=== PATIENT | male | born 1985 | race Caucasian/White ===

== ENCOUNTER 2016-11-30 03:34 | Emergency (ER) | payer MEDICAID ==
[~2016-11-30] VITALS: Ht 154.9 cm; Wt 58.0 kg
[2016-11-30 03:39] VITALS: Ht 154.9 cm; Wt 58.0 kg
[2016-11-30] MEDS ORDERED: SOD CHLORIDE 0.9% 1,000 ML IV STA (04:00)
[2016-11-30] MEDS ORDERED: ONDANSETRON 4 MG INJ IV STA (04:00)
[2016-11-30] MEDS ORDERED: morphine 4 MG/ML VIAL IV STA (04:00)
--- NOTE | 2016-11-30 04:35 | RADRPT ---
PROCEDURE: CHEST - 1 VIEW CLINICAL INDICATION: 31-year-old male with chest pain. TECHNIQUE: A single frontal AP upright portable view of the chest was performed. The images were reviewed on a PACS workstation. COMPARISON: None. FINDINGS: The cardiomediastinal silhouette has a normal appearance. There is no evidence for an infiltrate. T he pulmonary vascularity is within normal limits. There is no evidence for pneumothorax or pneumomed iastinum. The osseous structures are intact. IMPRESSION: No evidence for active cardiopulmonary disease. .Augusto Hui MD, MD Date Time Electronically viewed and signed by .Augusto Hui MD, on 11/30/2016 04:35 .M/
[2016-11-30 04:49] LABS: BASOPHIL # 0.1 10^3/ul (0.0-0.1); BASOPHILS % 0.7 % (0.0-2.0); EOSINOPHILS # 0.5 10^3/ul (0.0-0.5); EOSINOPHILS % 5.4 % (0.0-7.0); HEMATOCRIT 42.3 % (42.0-52.0); HEMOGLOBIN 15.1 g/dl (14.0-18.0); LYMPHOCYTES # 1.5 10^3/ul (0.8-2.9); MEAN CORPUSCULAR HEMOGLOBIN 31.2 pg (29.0-33.0); MEAN CORPUSCULAR HGB CONC 35.7 g/dl (32.0-37.0); MEAN CORPUSCULAR VOLUME 87.4 fl (82.0-101.0); MEAN PLATELET VOLUME 9.8 fl (7.4-10.4); MONOCYTE # 0.9 10^3/ul (0.3-0.9); MONOCYTES % 8.7 % (0.0-11.0); NEUTROPHILS % 69.8 % (39.0-77.0); PLATELET COUNT 302 10^3/UL (140-415); RED BLOOD COUNT 4.84 10^6/ul (4.70-6.10); RED CELL DISTRIBUTION WIDTH 11.7 % (11.5-14.5)
[2016-11-30 05:05] LABS: INR 1.11; PROTIME 14.3 Sec (12.2-14.2); PT RATIO 1.1
[2016-11-30 05:06] LABS: PARTIAL THROMBOPLASTIN TIME 30.7 Sec (25.0-35.0)
[2016-11-30 05:09] LABS: ANION GAP 22 (8-16); BLOOD UREA NITROGEN 9 mg/dl (7-20); CALCIUM 9.8 mg/dl (8.4-10.2); CARBON DIOXIDE 28 mmol/L (21-31); CHLORIDE 97 mmol/L (97-110); CREATININE 0.68 mg/dl (0.61-1.24); GLUCOSE 113 mg/dl (70-220); POTASSIUM 3.8 mmol/L (3.5-5.1); SODIUM 143 mmol/L (135-144)
[2016-11-30 05:21] LABS: TROPONIN-I < 0.012 ng/ml (0.00-0.12)
--- NOTE | 2016-11-30 05:21 | ERD ---
ER Documentation Chief Complaint Date/Time DATE: 11/30/16 TIME: 05:20 Chief Complaint palpitations started @0300,left chest sharp pain,numbness bilat hands HPI This a 31-year-old male who comes with palpitations started at 3 AM. Numbness in bilateral hands as well. No fevers no chills. No nausea no vomiting. Mild chest pain that is reproducible on left side. No trouble. No homicidal or suicidal ideation. No auditory or visual hallucinations ROS All systems reviewed and are negative except as per history of present illness. Allergies Allergies: Coded Allergies: No Known Allergy (Unverified , 11/30/16) PMhx/Soc History of Surgery: No Anesthesia Reaction: No Hx Neurological Disorder: No Hx Respiratory Disorders: No Hx Cardiac Disorders: No Hx Psychiatric Problems: No Hx Miscellaneous Medical Probl: No Hx Alcohol Use: Yes (occasionally) Hx Substance Use: No Hx Tobacco Use: Yes (quit) Smoking Status: Former smoker Physical Exam Vitals Vital Signs Date Time Temp Pulse Resp B/P Pulse Ox O2 Delivery O2 Flow Rate FiO2 11/30/16 04:51 73 20 134/89 100 Room Air 11/30/16 03:51 81 17 136/96 100 Room Air 11/30/16 03:39 99.6 105 18 149/100 100 Physical Exam Const: [] Head: Atraumatic Eyes: Normal Conjunctiva ENT: Normal External Ears, Nose and Mouth. Neck: Full range of motion..~ No meningismus. Resp: Clear to auscultation bilaterally Cardio: Regular rate and rhythm, no murmurs Abd: Soft, non tender, non distended. Normal bowel sounds Skin: No petechiae or rashes Back: No midline or flank tenderness Ext: No cyanosis, or edema Neur: Awake and alert Psych: Normal Mood and Affect Result Diagram: 11/30/16 04211/30/16 0421 Results 24 hrs Laboratory Tests Test 11/30/16 04:21 White Blood Count 10.010^3/ul Red Blood Count 4.8410^6/ul Hemoglobin 15.1g/dl Hematocrit 42.3% Mean Corpuscular Volume 87.4fl Mean Corpuscular Hemoglobin 31.2pg Mean Corpuscular Hemoglobin Concent 35.7g/dl Red Cell Distribution Width 11.7% Platelet Count 72989^3/UL Mean Platelet Volume 9.8fl Neutrophils % 69.8% Lymphocytes % 15.0% Monocytes % 8.7% Eosinophils % 5.4% Basophils % 0.7% Nucleated Red Blood Cells % 0.0/100WBC Neutrophils # 7.010^3/ul Lymphocytes # 1.510^3/ul Monocytes # 0.910^3/ul Eosinophils # 0.510^3/ul Basophils # 0.110^3/ul Nucleated Red Blood Cells # 0.010^3/ul Prothrombin Time 14.3Sec Prothrombin Time Ratio 1.1 INR International Normalized Ratio 1.11 Activated Partial Thromboplast Time 30.7Sec Sodium Level 143mmol/L Potassium Level 3.8mmol/L Chloride Level 97mmol/L Carbon Dioxide Level 28mmol/L Anion Gap 22 Blood Urea Nitrogen 9mg/dl Creatinine 0.68mg/dl Glucose Level 113mg/dl Calcium Level 9.8mg/dl Troponin I Pending Current Medications Medications (Trade) Dose Ordered Sig/August Route PRN Reason Start Time Stop Time Status Last Admin Dose Admin Sodium Chloride (NS) 1,000 ml @ 1,000 mls/hr Q1H STAT IV 11/30/16 04:00 11/30/16 04:59 DC 11/30/16 04:33 Morphine Sulfate (morphine) 4 mg ONCE STAT IV 11/30/16 04:00 11/30/16 04:05 DC Ondansetron HCl (Zofran Inj) 4 mg ONCE STAT IV 11/30/16 04:00 11/30/16 04:05 DC 11/30/16 04:33 Lorazepam (Ativan) 1 mg ONCE ONCE IV 11/30/16 05:30 11/30/16 05:31 Procedures/MDM EKG: Rate/Rhythm: [Normal Sinus Rhythm] QRS, ST, T-waves: [No changes consistent w/ acute ischemia] Impression: [No evidence of ischemia or arrhythmia] Chest X-ray 1V Interpreted by me: Soft Tissue: No acute abnormalities Bones: No acute abnormalities Mediastinum/Cardiac Silhouette/Lungs: [No acute abnormalities] Patient's thoracic symptoms have stabilized while in the department and are stable for outpatient follow up. Exam and work up not consistent w/ ischemia, arrhythmia, PE or dissection. Departure Diagnosis: Primary Impression: Palpitations Condition: Stable ASTON ESPINOZA Nov 30, 2016 05:21
[2016-11-30] MEDS ORDERED: LORA1TAB PO (05:28)
[2016-11-30] MEDS ORDERED: LORAZEPAM 2 MG INJ IV ONE (05:30)
[2016-11-30 05:44] VITALS: BP 101/74; PULSE 62; RESP 16; TEMP 98.3
== END 2016-11-30 05:45 | disposition home or self-care (01) ==
LOC: E/R 03:34
DX: R00.2 Palpitations (principal); R40.2252 Coma scale, best verbal response, oriented, at arrival to emergency department; R07.9 Chest pain, unspecified; R40.2142 Coma scale, eyes open, spontaneous, at arrival to emergency department; R40.2362 Coma scale, best motor response, obeys commands, at arrival to emergency department; Z87.891 Personal history of nicotine dependence
CPT/HCPCS: 36415; 71010; 80048; 84484; 85025; 85610; 85730; 93005; 96374; 96375; J2060; J2405; J7030; Z7502